=== PATIENT | female | born 1980 | race African-American/Black ===

== ENCOUNTER 2017-04-28 11:37 | Emergency (ER) | payer SELFPAY | END 2017-04-28 13:24 | disposition home or self-care (01) | LOC: BURERS 11:37 | DX: S91.201A Unspecified open wound of right great toe with damage to nail, initial encounter (principal); E66.9 Obesity, unspecified; J45.909 Unspecified asthma, uncomplicated; F17.210 Nicotine dependence, cigarettes, uncomplicated; W23.0XXA Caught, crushed, jammed, or pinched between moving objects, initial encounter | CPT/HCPCS: 12001 ==

== ENCOUNTER 2017-10-18 20:50 | Emergency (ER) | payer OTHER, SELFPAY ==
[2017-10-18] MEDS ORDERED: Ibuprofen 800 MG TAB ONE (21:03)
[2017-10-18] MEDS ORDERED: traMADol HCl 50 MG TAB ONE (21:35)
--- NOTE | 2017-10-18 22:27 | RAD ---
RIGHT SHOULDER THREE VIEWS: 10/18/17 No fracture, dislocation, or AC joint widening was seen. The visible adjacent ribs appeared intact an d the visible portions of the right lung were clear. IMPRESSION: No acute findings. POS: HOME
--- NOTE | 2017-10-18 22:32 | RAD ---
CERVICAL SPINE: 10/18/17 AP, lateral, open mouth and swimmer's views were provided. No fracture or dislocation was seen. The C1 to dens distance is normal and the disc spaces are normal in height. The soft tissues are normal in thickness. C6 and C7 are not seen perfectly due to overlap ping structures, but no gross findings of fracture were apparent there. If clinical suspicion were hi gh, then a CT would be needed for clear clearance. IMPRESSION: No acute cervical findings. POS: HOME
== END 2017-10-18 21:38 | disposition home or self-care (01) ==
LOC: BURERS 20:50
DX: S16.1XXA Strain of muscle, fascia and tendon at neck level, initial encounter (principal); S40.011A Contusion of right shoulder, initial encounter; J45.909 Unspecified asthma, uncomplicated; E66.9 Obesity, unspecified; F17.210 Nicotine dependence, cigarettes, uncomplicated; V40.6XXA Car passenger injured in collision with pedestrian or animal in traffic accident, initial encounter; W22.12XA Striking against or struck by front passenger side automobile airbag, initial encounter
CPT/HCPCS: 72040

== ENCOUNTER 2018-08-30 11:55 | Emergency (ER) | payer OTHER, SELFPAY ==
--- NOTE | 2018-08-30 15:55 | RAD ---
LUMBAR SPINE 3 VIEWS: DATE: 08/30/2018. FINDINGS: No fracture, dislocation, or disk space narrowing was seen. No bony anomalies are noted. The SI tessy nts appear normal. IMPRESSION: No significant findings. POS: HOME
--- NOTE | 2018-08-30 15:55 | RAD ---
RIGHT KNEE 4 VIEWS: DATE: 08/30/2018. FINDINGS: No fracture, dislocation, or joint effusion was seen. The joint space appears normal. IMPRESSION: No acute finding. POS: HOME
== END 2018-08-30 15:50 | disposition home or self-care (01) ==
LOC: BURERS 11:55
DX: S33.5XXA Sprain of ligaments of lumbar spine, initial encounter (principal); S29.012A Strain of muscle and tendon of back wall of thorax, initial encounter; S80.01XA Contusion of right knee, initial encounter; J45.909 Unspecified asthma, uncomplicated; E66.9 Obesity, unspecified; F17.210 Nicotine dependence, cigarettes, uncomplicated; V49.9XXA Car occupant (driver) (passenger) injured in unspecified traffic accident, initial encounter
CPT/HCPCS: 72100

== ENCOUNTER 2018-09-14 14:59 | Emergency (ER) | payer SELFPAY | END 2018-09-14 15:40 | disposition home or self-care (01) | LOC: BURERS 14:59 | DX: H60.92 Unspecified otitis externa, left ear (principal); J45.909 Unspecified asthma, uncomplicated; E66.9 Obesity, unspecified; F17.210 Nicotine dependence, cigarettes, uncomplicated | CPT/HCPCS: 99282 ==

== ENCOUNTER 2019-04-22 17:13 | Emergency (ER) | payer SELFPAY ==
[2019-04-22] MEDS ORDERED: HYDROcodone/Acetaminophen 5/325 mg Tablet ONE (17:37)
[2019-04-22] MEDS ORDERED: AMOXicillin 250 MG CAP ONE (17:37)
== END 2019-04-22 17:44 | disposition home or self-care (01) ==
LOC: BURERS 17:13
DX: K02.9 Dental caries, unspecified (principal)
CPT/HCPCS: 99282

== ENCOUNTER 2019-06-11 02:13 | Emergency (ER) | payer SELFPAY ==
[2019-06-11] MEDS ORDERED: Albuterol Sulfate 1.25 MG/3 ML NEB ONE (02:47)
[2019-06-11 03:00] LABS: #Basophils 0.1 thou/uL (0.0-0.2); #Eosinphils 0.3 thou/uL (0.0-0.7); #Lymphocytes 2.3 thou/uL (1.20-3.40); #Monocytes 0.8 thou/uL (0.11-0.59); #Neutrophils 6.7 thou/uL (1.40-6.50); %Basophils 1.4 % (0.0-1.0); %Eosinophils 2.7 % (0.0-10.0); %Lymphocytes 22.3 % (21.0-51.0); %Monocytes 7.4 % (0.0-10.0); %Neutrophils 66.2 % (42.0-75.0); Hemoglobin 11.1 g/dL (12.0-16.0); Mean Corpuscular HGB CONC 32.8 g/dL (32.0-36.0); Mean Corpuscular Volume 82.4 fL (78.0-98.0); Mean Platelet Volume 7.9 fL (7.4-10.4); Platelet Count 298 thou/uL (130-400); RBC Distribution Width 15.4 % (11.5-14.5); White Blood Cell (WBC) Count 10.2 thou/uL (4.8-10.8)
[2019-06-11 03:14] LABS: ALT (SGPT) 22 U/L (8-55); AST (SGOT) 14 U/L (5-34); Albumin 3.9 g/dL (3.5-5.0); Alkaline Phosphatase 157 U/L (40-150); Anion Gap 14 mmol/L (10-20); BUN (Urea Nitrogen) 12 mg/dL (7.0-18.7); Bilirubin, Total Less than 0.2 mg/dL (0.2-1.2); Calc. Creatinine Clearance 0 mL/min (70-130); Calcium 9.7 mg/dL (7.8-10.44); Carbon Dioxide 23 mmol/L (22-29); Chloride 107 mmol/L (98-107); Estimated GFR-MDRD Greater than 90; Globulin 3.1 g/dL (2.4-3.5); Glucose 106 mg/dL (70-105); Potassium 3.5 mmol/L (3.5-5.1); Sodium 140 mmol/L (136-145)
[2019-06-11] MEDS ORDERED: Azithromycin 250 MG TAB ONE (03:29)
[2019-06-11] MEDS ORDERED: predniSONE 20 MG TAB ONE (03:29)
--- NOTE | 2019-06-11 08:25 | RAD ---
CHEST 2 VIEWS: DATE: 06/11/2019. FINDINGS: Comparison is made with the 02/26/2013 study. The heart is normal in size and the lungs are clear. No acute infiltrate or effusion was seen. Ther e is no vascular congestion or edema. IMPRESSION: No acute findings. POS: HOME
== END 2019-06-11 03:37 | disposition home or self-care (01) ==
LOC: BURERS 02:13
DX: J18.9 Pneumonia, unspecified organism (principal); J45.901 Unspecified asthma with (acute) exacerbation; G43.909 Migraine, unspecified, not intractable, without status migrainosus; F17.210 Nicotine dependence, cigarettes, uncomplicated
CPT/HCPCS: 71046; 80053; 84484; 85025; 85379; 93005; J7512

== ENCOUNTER → 2019-08-28 | Emergency (ER) | payer BC, SELFPAY ==
[~2019-08-28] MED LIST: AMOXicillin 250 MG CAP ONE; Dexamethasone 4 MG TAB ONE
== END ==
LOC: BURERS 11:54
DX: J20.9 Acute bronchitis, unspecified (principal); F17.210 Nicotine dependence, cigarettes, uncomplicated; J45.909 Unspecified asthma, uncomplicated
CPT/HCPCS: J7620; J8540

== ENCOUNTER 2019-10-23 00:31 | Emergency (ER) | payer BC ==
[2019-10-23 01:18] LABS: #Basophils 0.2 thou/uL (0.0-0.2); #Eosinphils 0.4 thou/uL (0.0-0.7); #Lymphocytes 3.3 thou/uL (1.20-3.40); #Monocytes 0.5 thou/uL (0.11-0.59); %Eosinophils 4.6 % (0.0-10.0); %Lymphocytes 34.9 % (21.0-51.0); %Monocytes 5.7 % (0.0-10.0); %Neutrophils 52.7 % (42.0-75.0); Hemoglobin 11.3 g/dL (12.0-16.0); Mean Corpuscular HGB CONC 31.1 g/dL (32.0-36.0); Mean Corpuscular Hemoglobin 26.9 pg (27.0-31.0); Mean Corpuscular Volume 86.5 fL (78.0-98.0); Mean Platelet Volume 8.2 fL (7.4-10.4); Platelet Count 276 thou/uL (130-400); White Blood Cell (WBC) Count 9.4 thou/uL (4.8-10.8)
[2019-10-23 01:36] LABS: ALT (SGPT) 19 U/L (8-55); AST (SGOT) 15 U/L (5-34); Albumin 3.8 g/dL (3.5-5.0); Alkaline Phosphatase 148 U/L (40-110); Anion Gap 15 mmol/L (10-20); BUN (Urea Nitrogen) 9 mg/dL (7.0-18.7); Bilirubin, Total Less than 0.2 mg/dL (0.2-1.2); Calc. Creatinine Clearance 0 mL/min (70-130); Calcium 9.3 mg/dL (7.8-10.44); Carbon Dioxide 21 mmol/L (22-29); Chloride 108 mmol/L (98-107); Estimated GFR-MDRD Greater than 90; Globulin 3.4 g/dL (2.4-3.5); Glucose 86 mg/dL (70-105); Potassium 3.5 mmol/L (3.5-5.1); Protein, Total 7.2 g/dL (6.0-8.3); Sodium 140 mmol/L (136-145)
--- NOTE | 2019-10-23 08:51 | RAD ---
CHEST 1 VIEW: INDICATION: Cough and dyspnea. IMPRESSION: No acute cardiopulmonary abnormality. No appreciable change is seen from the comparison dated 019. POS: [facility]
== END 2019-10-23 02:00 | disposition home or self-care (01) ==
LOC: BURERS 00:31
DX: D64.9 Anemia, unspecified (principal); K92.2 Gastrointestinal hemorrhage, unspecified; J06.9 Acute upper respiratory infection, unspecified
CPT/HCPCS: 36415; 71045; 80053; 83880; 84484; 85025; 93005; J7620

== ENCOUNTER 2019-11-10 17:34 | Emergency (ER) | payer BC ==
[2019-11-10] MEDS ORDERED: methylPREDNISolone Sod Succ/PF 125 MG/2 ML VIAL ONE (17:48)
[2019-11-10 18:21] LABS: ALT (SGPT) 22 U/L (8-55); AST (SGOT) 17 U/L (5-34); Albumin 3.8 g/dL (3.5-5.0); Alkaline Phosphatase 137 U/L (40-110); Anion Gap 15 mmol/L (10-20); BUN (Urea Nitrogen) 10 mg/dL (7.0-18.7); Bilirubin, Total 0.2 mg/dL (0.2-1.2); Calc. Creatinine Clearance 0 mL/min (70-130); Calcium 9.3 mg/dL (7.8-10.44); Carbon Dioxide 21 mmol/L (22-29); Chloride 108 mmol/L (98-107); Estimated GFR-MDRD Greater than 90; Globulin 3.5 g/dL (2.4-3.5); Glucose 76 mg/dL (70-105); Potassium 3.4 mmol/L (3.5-5.1); Protein, Total 7.3 g/dL (6.0-8.3); Sodium 141 mmol/L (136-145)
[2019-11-10] MEDS ORDERED: Guaifenesin DM 100-10/5 ML UDCUP ONE (18:21)
[2019-11-10 18:26] LABS: Anisocytosis SLIGHT = 6-15 cells (100X) (0-5/hpf); Band 1 % (5-11); Eosinophils 6 % (0-10); Hemoglobin 11.5 g/dL (12.0-16.0); Lymphocytes 32 % (21-51); MDiff Complete? YES; Mean Corpuscular HGB CONC 31.8 g/dL (32.0-36.0); Mean Corpuscular Hemoglobin 27.5 pg (27.0-31.0); Mean Corpuscular Volume 86.5 fL (78.0-98.0); Mean Platelet Volume 8.3 fL (7.4-10.4); Monocytes 8 % (0-10); Neutrophil 53 % (42-75); Platelet Count 297 thou/uL (130-400); RBC Distribution Width 15.2 % (11.5-14.5); White Blood Cell (WBC) Count 10.2 thou/uL (4.8-10.8)
--- NOTE | 2019-11-10 20:45 | RAD ---
CHEST TWO VIEWS: Date: 11-10-19 Comparison: 10-23-19 FINDINGS: The heart is normal in size and the lungs are clear. No infiltrate or effusion was seen. There is no vascular congestion or edema. IMPRESSION: No acute thoracic finding. POS: HOME
== END 2019-11-10 18:39 | disposition home or self-care (01) ==
LOC: BURERS 17:34
DX: J06.9 Acute upper respiratory infection, unspecified (principal); Z79.51 Long term (current) use of inhaled steroids
CPT/HCPCS: 71046; 80053; 84484; 85025; 87804; 93005; 96374; J2930; J7620

== ENCOUNTER 2020-01-01 12:58 | Emergency (ER) | payer BC ==
[2020-01-01] MEDS ORDERED: HYDROcodone/Acetaminophen 5/325 mg Tablet ONE (13:22)
[2020-01-01] MEDS ORDERED: predniSONE 20 MG TAB ONE (13:23)
[2020-01-01] MEDS ORDERED: Ibuprofen 200 MG TAB ONE (13:23)
== END 2020-01-01 13:30 | disposition home or self-care (01) ==
LOC: BURERS 12:58
DX: S39.012A Strain of muscle, fascia and tendon of lower back, initial encounter (principal); J45.909 Unspecified asthma, uncomplicated; F17.210 Nicotine dependence, cigarettes, uncomplicated; X50.1XXA Overexertion from prolonged static or awkward postures, initial encounter
CPT/HCPCS: 99283; J7512

== ENCOUNTER 2020-01-31 11:31 | Emergency (ER) | payer BC ==
[2020-01-31] MEDS ORDERED: AMOXicillin 250 MG CAP ONE (12:01)
[2020-01-31] MEDS ORDERED: predniSONE 20 MG TAB ONE (12:01)
== END 2020-01-31 12:02 | disposition home or self-care (01) ==
LOC: BURERS 11:31
DX: J45.909 Unspecified asthma, uncomplicated (principal); J06.9 Acute upper respiratory infection, unspecified; F17.210 Nicotine dependence, cigarettes, uncomplicated; Z79.51 Long term (current) use of inhaled steroids
CPT/HCPCS: 99283; J7512

== ENCOUNTER 2021-07-08 14:00 | Emergency (ER) | payer BC, OTHER, SELFPAY ==
[2021-07-09 17:56] LABS: SARS-CoV-2 PCR by NAA Not Detected (NotDetected)
== END 2021-07-08 15:20 | disposition home or self-care (01) ==
LOC: BURERS 14:00
DX: R05 Cough (principal); Z20.822 Contact with and (suspected) exposure to COVID-19; J45.909 Unspecified asthma, uncomplicated; F17.210 Nicotine dependence, cigarettes, uncomplicated
CPT/HCPCS: 99283; U0003; U0005

== ENCOUNTER 2021-09-30 16:58 | Emergency (ER) | payer SELFPAY | END 2021-09-30 17:34 | disposition home or self-care (01) | LOC: BURERS 16:58 | DX: K02.9 Dental caries, unspecified (principal); R05.9 Cough, unspecified; K03.81 Cracked tooth; J45.909 Unspecified asthma, uncomplicated; F17.210 Nicotine dependence, cigarettes, uncomplicated; Z79.899 Other long term (current) drug therapy | CPT/HCPCS: 99283 ==

== ENCOUNTER 2021-11-23 11:34 | Emergency (ER) | payer OTHER, SELFPAY ==
[2021-11-23] MEDS ORDERED: Ibuprofen 800 MG TAB ONE (12:48)
== END 2021-11-23 13:54 | disposition home or self-care (01) ==
LOC: BURERS 11:34
DX: R50.9 Fever, unspecified (principal); Z20.822 Contact with and (suspected) exposure to COVID-19; J45.909 Unspecified asthma, uncomplicated; F17.210 Nicotine dependence, cigarettes, uncomplicated
CPT/HCPCS: 71046; 87804

== ENCOUNTER 2021-11-30 11:25 | Inpatient (IN) | payer OTHER ==
[2021-11-30] MEDS ORDERED: Dexamethasone 4 MG TAB ONE (12:49)
[2021-11-30 13:05] LABS: SARS-CoV-2 NAA Rapid Test DETECTED (NotDetected)
[2021-11-30 13:10] LABS: #Lymphocytes 1.2 thou/uL (1.20-3.40); #Monocytes 0.3 thou/uL (0.11-0.59); #Neutrophils 4.2 thou/uL (1.40-6.50); %Basophils 0.7 % (0.0-1.0); %Eosinophils 0.4 % (0.0-10.0); %Lymphocytes 20.4 % (21.0-51.0); %Monocytes 5.2 % (0.0-10.0); %Neutrophils 73.4 % (42.0-75.0); Hemoglobin 11.9 g/dL (12.0-16.0); Mean Corpuscular HGB CONC 32.7 g/dL (32.0-36.0); Mean Corpuscular Hemoglobin 27.1 pg (27.0-31.0); Mean Corpuscular Volume 82.9 fL (78.0-98.0); Mean Platelet Volume 8.5 fL (7.4-10.4); Platelet Count 346 thou/uL (130-400); RBC Distribution Width 14.7 % (11.5-14.5); Red Blood Cell (RBC) Count 4.39 mill/uL (4.20-5.40); White Blood Cell (WBC) Count 5.7 thou/uL (4.8-10.8)
[2021-11-30 13:23] LABS: Bicarbonate (HCO3v) 24.7 mmol/L (22.0-28.0); CO2 Tension (PvCO2) 43.7 mmHg (42.0-51.0); Calcium, Ionized 1.03 mmol/L (1.15-1.33); Chloride 107 mmol/L (98-107); Hemoglobin - Calc 12.7 g/dL (12.0-16.0); Potassium 4.6 mmol/L (3.5-5.1); Sodium 143 mmol/L (138-145); vO2 Saturation-calc 90.7 % (60.0-85.0)
[2021-11-30 13:36] LABS: ALT (SGPT) 37 U/L (8-55); AST (SGOT) 63 U/L (5-34); Albumin 3.8 g/dL (3.5-5.0); Alkaline Phosphatase 119 U/L (40-110); Anion Gap 16 mmol/L (10-20); BUN (Urea Nitrogen) 7 mg/dL (7.0-18.7); Bilirubin, Total 0.4 mg/dL (0.2-1.2); Calc. Creatinine Clearance 0 mL/min (70-130); Calcium 8.8 mg/dL (7.8-10.44); Carbon Dioxide 22 mmol/L (22-29); Chloride 106 mmol/L (98-107); Globulin 4.9 g/dL (2.4-3.5); Glucose 99 mg/dL (70-105); Potassium 4.5 mmol/L (3.5-5.1); Protein, Total 8.7 g/dL (6.0-8.3); Sodium 139 mmol/L (136-145)
[2021-11-30 14:24] LABS: Bilirubin Negative (Negative); Blood, Urine Negative (Negative); Clarity Clear (Clear); Glucose, Urine (Dipstick) Negative (Negative); Ketone, Urine Trace mg/dL (Negative); Leukocyte Negative (Negative); Nitrite Negative (Negative); Protein, Urine (Dipstick) 30 mg/dL (Neg-Trace); pH, Urine 6.5 (5.0-9.0)
[2021-11-30 14:26] LABS: Bacteria/HPF None Seen HPF (None Seen); RBC/HPF None Seen HPF (0-3); Squamous Epithelial 0-3 HPF (0-3); WBC/HPF None Seen HPF (0-3)
[2021-11-30] MEDS ORDERED: Ketorolac Tromethamine 30 MG/ML VIAL ONE (17:23)
[2021-11-30] MEDS ORDERED: AMOXicillin 250 MG CAP ONE (17:32)
[2021-11-30 22:03] VITALS: BMI 46.0
[2021-11-30] MEDS ORDERED: Albuterol 200 PUFF (6.7GM INHALER) INH PRN (22:22)
[2021-11-30] MEDS ORDERED: Ondansetron PF 4 MG/2 ML Vial IVP PRN (22:30)
[2021-11-30] MEDS ORDERED: Ondansetron ODT 4 MG TAB SL PRN (22:30)
[2021-11-30] MEDS ORDERED: Acetaminophen 325 MG TAB PO PRN (22:30)
[2021-11-30] MEDS: Albuterol 200 PUFF (6.7GM INHALER) INH SCH (23:54)
[2021-11-30] MEDS: Dextrose 5 %-0.45 % NaCl 1,000 ML IV SCH (23:54)
[2021-12-01] MEDS: Albuterol 200 PUFF (6.7GM INHALER) INH SCH ×3 (05:36→17:35)
[2021-12-01] MEDS ORDERED: Albuterol Sulfate 2.5 mg/3 ml Neb NEB PRN (06:33)
[2021-12-01] MEDS ORDERED: Guaifenesin DM 100-10/5 ML UDCUP PO PRN (06:35)
[2021-12-01] MEDS: Loratadine 10 MG TAB PO SCH (08:04)
[2021-12-01] MEDS: Dexamethasone 4 MG TAB PO SCH (08:04)
[2021-12-01] MEDS ORDERED: Enoxaparin Sodium 30 MG/0.3 ML SYRINGE SC SCH (09:00)
[2021-12-01] MEDS ORDERED: cefTRIAXone\\ROCEPHIN 2 GM in Sodium Chloride 0.9% 100 ML IVPB SCH (09:00)
[2021-12-01] MEDS: Dextrose 5 %-0.45 % NaCl 1,000 ML IV SCH (14:49)
[2021-12-01] MEDS ORDERED: Calcium Carbonate 500 MG ChewTAB PO PRN (20:11)
[2021-12-01] MEDS: Simethicone Chewable 80 MG TAB PO PRN (20:24)
[2021-12-01] MEDS: Enoxaparin Sodium 40 MG/0.4 ML SYRINGE SC SCH (20:25)
[2021-12-02] MEDS: Albuterol 200 PUFF (6.7GM INHALER) INH SCH ×4 (00:05→18:45)
[2021-12-02] MEDS: Enoxaparin Sodium 40 MG/0.4 ML SYRINGE SC SCH ×2 (08:22→21:15)
[2021-12-02] MEDS: Loratadine 10 MG TAB PO SCH (08:22)
[2021-12-02] MEDS: Dexamethasone 4 MG TAB PO SCH (08:23)
[2021-12-02] MEDS: cefTRIAXone\\ROCEPHIN 2 GM in Sodium Chloride 0.9% 100 ML IVPB SCH (16:30)
[2021-12-03] MEDS: Albuterol 200 PUFF (6.7GM INHALER) INH SCH ×5 (08:43→23:59)
[2021-12-03] MEDS: Enoxaparin Sodium 40 MG/0.4 ML SYRINGE SC SCH ×2 (08:43→20:54)
[2021-12-03] MEDS: Dexamethasone 4 MG TAB PO SCH (08:44)
[2021-12-03] MEDS: Loratadine 10 MG TAB PO SCH (08:44)
[2021-12-03] MEDS: cefTRIAXone\\ROCEPHIN 2 GM in Sodium Chloride 0.9% 100 ML IVPB SCH (16:12)
[2021-12-04] MEDS: Albuterol 200 PUFF (6.7GM INHALER) INH SCH ×3 (05:46→17:31)
[2021-12-04] MEDS: Dexamethasone 4 MG TAB PO SCH (08:39)
[2021-12-04] MEDS: Enoxaparin Sodium 40 MG/0.4 ML SYRINGE SC SCH ×2 (08:39→20:42)
[2021-12-04] MEDS: Loratadine 10 MG TAB PO SCH (08:39)
[2021-12-04] MEDS: cefTRIAXone\\ROCEPHIN 2 GM in Sodium Chloride 0.9% 100 ML IVPB SCH (15:46)
[2021-12-04] MEDS: Simethicone Chewable 80 MG TAB PO PRN (21:01)
[2021-12-05] MEDS: Albuterol 200 PUFF (6.7GM INHALER) INH SCH ×3 (00:11→12:12)
[2021-12-05 05:13] LABS: #Basophils 0.1 thou/uL (0.0-0.2); #Lymphocytes 2.1 thou/uL (1.20-3.40); #Monocytes 0.8 thou/uL (0.11-0.59); #Neutrophils 6.6 thou/uL (1.40-6.50); %Basophils 0.6 % (0.0-1.0); %Eosinophils 0.2 % (0.0-10.0); %Lymphocytes 22.1 % (21.0-51.0); %Monocytes 8.3 % (0.0-10.0); %Neutrophils 68.9 % (42.0-75.0); Hemoglobin 10.7 g/dL (12.0-16.0); Mean Corpuscular HGB CONC 32.9 g/dL (32.0-36.0); Mean Corpuscular Volume 82.1 fL (78.0-98.0); Mean Platelet Volume 7.9 fL (7.4-10.4); Platelet Count 494 thou/uL (130-400); RBC Distribution Width 14.6 % (11.5-14.5); Red Blood Cell (RBC) Count 3.97 mill/uL (4.20-5.40); White Blood Cell (WBC) Count 9.6 thou/uL (4.8-10.8)
[2021-12-05 05:25] LABS: Anion Gap 17 mmol/L (10-20); BUN (Urea Nitrogen) 8 mg/dL (7.0-18.7); Calc. Creatinine Clearance 190 mL/min (70-130); Calcium 9.2 mg/dL (7.8-10.44); Carbon Dioxide 20 mmol/L (22-29); Chloride 108 mmol/L (98-107); Glucose 104 mg/dL (70-105); Potassium 3.6 mmol/L (3.5-5.1); Sodium 141 mmol/L (136-145)
[2021-12-05 05:46] VITALS: BP 115/68; TEMP 98.2
[2021-12-05] MEDS: Loratadine 10 MG TAB PO SCH (09:21)
[2021-12-05] MEDS: Dexamethasone 4 MG TAB PO SCH (09:21)
[2021-12-05] MEDS: Enoxaparin Sodium 40 MG/0.4 ML SYRINGE SC SCH (09:22)
[2021-12-05] MEDS: cefTRIAXone\\ROCEPHIN 2 GM in Sodium Chloride 0.9% 100 ML IVPB SCH (14:05)
== END 2021-12-05 15:20 | disposition home or self-care (01) | DRG 177 ==
LOC: BURERS 11:25 → BURMED 19:45
PROVIDERS: ADMIT Family Medicine; ATTEND Family Medicine
PROC: 8E0ZXY6 Isolation (ICD-10-PCS; principal; 2021-11-30)
DX: U07.1 COVID-19 (principal); J18.9 Pneumonia, unspecified organism; J45.909 Unspecified asthma, uncomplicated; Z98.51 Tubal ligation status; Z98.890 Other specified postprocedural states
CPT/HCPCS: 0240U; 36415; 71045; 80048; 80053; 81003; 81015; 82330; 82803; 83605; 85025; 94640; 94760; 96374; J0696; J1650; J1885; J3490; J7042; J7620; J8540

== ENCOUNTER 2022-06-09 20:19 | Emergency (ER) | payer OTHER, SELFPAY ==
[2022-06-09] MEDS ORDERED: Ibuprofen 800 MG TAB ONE (20:54)
== END 2022-06-09 21:09 | disposition home or self-care (01) ==
LOC: BURERS 20:19
DX: U07.1 COVID-19 (principal); K02.9 Dental caries, unspecified; J45.909 Unspecified asthma, uncomplicated; F17.210 Nicotine dependence, cigarettes, uncomplicated
CPT/HCPCS: 99283; U0003; U0005

== ENCOUNTER 2024-01-22 12:33 | Emergency (ER) | payer OTHER ==
[2024-01-22 13:51] LABS: Influenza A by NAA Not Detected (NotDetected); Influenza B by NAA Not Detected (NotDetected); SARS-CoV-2 NAA Rapid Test Not Detected (NotDetected)
== END 2024-01-22 14:05 | disposition home or self-care (01) ==
LOC: BURERS 12:33
DX: B34.9 Viral infection, unspecified (principal)
CPT/HCPCS: 71046

== ENCOUNTER 2024-10-02 15:12 | Emergency (ER) | payer OTHER, SELFPAY ==
[2024-10-02] MEDS ORDERED: Ipratropium/Albuterol 3 ML NEB ONE (15:35)
[2024-10-02] MEDS ORDERED: methylPREDNISolone Acetate 40 mg/ml Vial ONE (16:11)
== END 2024-10-02 16:18 | disposition home or self-care (01) ==
LOC: BURERS 15:12
DX: J45.901 Unspecified asthma with (acute) exacerbation (principal); J06.9 Acute upper respiratory infection, unspecified; I10 Essential (primary) hypertension; B97.89 Other viral agents as the cause of diseases classified elsewhere; Z20.822 Contact with and (suspected) exposure to COVID-19
CPT/HCPCS: 71046; 87070; 87205; 87428; 94640; 96372; J1010; J7620

== ENCOUNTER 2025-08-28 17:23 | Emergency (ER) | payer OTHER ==
[2025-08-28] MEDS ORDERED: Sulfameth/Trimethoprim DS 800-160mg TAB ONE (17:39)
[2025-08-28] MEDS ORDERED: Cephalexin 250 MG CAP ONE (17:39)
[2025-08-28] MEDS ORDERED: Ibuprofen 800 MG TAB ONE (17:51)
== END 2025-08-28 17:55 | disposition home or self-care (01) ==
LOC: BURERS 17:23
DX: S30.861A Insect bite (nonvenomous) of abdominal wall, initial encounter (principal); L03.90 Cellulitis, unspecified; J44.9 Chronic obstructive pulmonary disease, unspecified; E66.9 Obesity, unspecified; W57.XXXA Bitten or stung by nonvenomous insect and other nonvenomous arthropods, initial encounter